=== PATIENT | female | born 1985 | race Caucasian/White ===

== ENCOUNTER 2016-09-25 09:37 | Emergency (ER) | payer OTHER ==
[2016-09-25 10:09] VITALS: BP 115/69
--- NOTE | 2016-09-25 10:51 | RAD ---
Indication: Left foot pain and injury. 2 views of left foot demonstrates no fracture. Base of the fifth metatarsal is unremarkable with no fracture. No other fractures are noted. IMPRESSION: No fracture of the foot is noted.
--- NOTE | 2016-09-25 10:55 | RAD ---
Indication: Left ankle injury. 3 views of left ankle demonstrates no fracture or dislocation. No other bone or joint abnormality is noted. IMPRESSION: No fracture of the left ankle is noted.
--- NOTE | 2016-09-25 11:08 | UC ---
Lower Extremity/Ankle HPI - HPI Summary HPI Summary: LEFT ANKLE PAIN LAST NIGHT AFTER TRIPPING OVER CHILD'S TOYS, ROLLED ANKLE INWARD SINCE TIME OF INJURY PAIN HAS NOT IMPROVED. MILD SWELLING TO (LATERAL) ANKLE - History of Current Complaint Chief Complaint: UCLowerExtremity Stated Complaint: LEFT ANKLE PAIN Time Seen by Provider: 09/25/16 10:39 Hx Obtained From: Patient Hx Last Menstrual Period: 08/25/16 Onset/Duration: Sudden Onset, Lasting Days, Still Present Severity Initially: Moderate Severity Currently: Moderate Aggravating Factor(s): Standing, Ambulation Alleviating Factor(s): Rest, Elevation, Ice Able to Bear Weight: No - Risk Factors Gout Risk Factors: Negative DVT Risk Factors: Negative Septic Arthritis Risk Factor: Negative - Allergies/Home Medications Allergies/Adverse Reactions: Allergies Allergy/AdvReac Type Severity Reaction Status Date / Time Penicillins AdvReac Mild yeast Verified 09/25/16 10:03 infections Home Medications: Home Medications Mirtazapine TAB* [Remeron TAB*] 30 mg PO BEDTIME 09/25/16 [History Confirmed ] Omeprazole CAP* [Prilosec CAP* 20 MG] 20 mg PO QAM 09/25/16 [History Confirmed 09/25/16] Tizanidine HCl [Zanaflex] 2 mg PO TID PRN 09/25/16 [History Confirmed 09/25/16] oxyCODONE/Acetamin 5/325 MG* [Percocet 5/325 TAB*] 1 tab PO Q4H PRN 09/25/16 [ History Confirmed 09/25/16] PMH/Surg Hx/FS Hx/Imm Hx Previously Healthy: Yes Endocrine History Of: Denies: Diabetes Cardiovascular History Of: Denies: Hypertension, Pacemaker/ICD Respiratory History Of: Denies: Asthma GI/ History Of: Denies: Renal Disease Psychological History Of: Reports: Depression - Surgical History Surgical History: Yes Surgery Procedure, Year, and Place: C5C6 Fusion, 2015, [facility]; Gastric Bypass, 2014, [facility], and Tubal Ligation, 2011, [place]; , 2009, [place]; Breast Reductions - Family History Known Family History: Negative: Other - NO JOINT LAXITY - Social History Occupation: Unemployed - SAHM Lives: With Family Alcohol Use: None Substance Use Type: Prescribed Substance Use Comment - Amount & Last Used: Percocet 5/325 Q4H PRN; 0730 Smoking Status (MU): Former Smoker Type: Cigarettes Amount Used/How Often: 1 PPD Length of Time of Smoking/Using Tobacco: 13 Years Have You Smoked in the Last Year: Yes When Did the Patient Quit Smoking/Using Tobacco: 2014 Household Exposure Type: Cigarettes Review of Systems Constitutional: Negative Skin: Negative Eyes: Negative ENT: Negative Respiratory: Negative Cardiovascular: Negative Gastrointestinal: Negative Genitourinary: Negative Motor: Negative Neurovascular: Negative Musculoskeletal: Arthralgia, Myalgia Neurological: Negative Psychological: Negative All Other Systems Reviewed And Are Negative: Yes Physical Exam Triage Information Reviewed: Yes Appearance: Well-Appearing, No Pain Distress, Well-Nourished Vital Signs: Initial Vital Signs Temp 98.5 F 09/25/16 09:58 Pulse 80 09/25/16 09:58 Resp 16 09/25/16 09:58 BP 115/69 09/25/16 09:58 Pulse Ox 100 09/25/16 09:58 Vital Signs Reviewed: Yes Eye Exam: Normal ENT Exam: Normal ENT: Positive: Normal ENT inspection, Hearing grossly normal, TMs normal Dental Exam: Normal Neck exam: Normal Neck: Positive: Supple, Nontender Respiratory Exam: Normal Respiratory: Positive: Chest non-tender, Lungs clear, Normal breath sounds, No respiratory distress, No accessory muscle use Cardiovascular Exam: Normal Cardiovascular: Positive: RRR, No Murmur, Pulses Normal Abdominal Exam: Normal Musculoskeletal: Positive: Strength Intact, ROM Intact, Edema @ - LEFT ANKLE Neurological Exam: Normal Psychological Exam: Normal Psychological: Positive: Normal Response To Family Skin Exam: Normal Lower Extremity Course/Dx - Differential Dx/Diagnosis Differential Diagnosis/HQI/PQRI: Fracture (Closed), Sprain, Strain Provider Diagnoses: LEFT ANKLE SPRAIN Discharge - Discharge Plan Condition: Stable Disposition: HOME Patient Education Materials: Ankle Sprain (ED), Ankle Strain (ED) Referrals: Yves Bridges MD [Medical Doctor] - Rojelio Colvin [Primary Care Provider] -
== END 2016-09-25 11:21 | disposition home or self-care (01) ==
LOC: UCCORT 09:37
DX: S93.402A Sprain of unspecified ligament of left ankle, initial encounter (principal); W22.8XXA Striking against or struck by other objects, initial encounter; Y93.9 Activity, unspecified; Y92.9 Unspecified place or not applicable; Z88.0 Allergy status to penicillin; Z98.84 Bariatric surgery status; Z87.891 Personal history of nicotine dependence
CPT/HCPCS: 99212; G0463